=== PATIENT | male | born 1955 | race Caucasian/White ===

== ENCOUNTER 2020-12-19 17:36 | Emergency (ER) | payer MEDICARE, SELFPAY ==
--- NOTE | 2020-12-19 17:37 | W.ED.GENAD ---
Discharge Plan Disposition Patient Disposition: HOME Condition: Stable Discharge Details Clinical Impression: Otitis media Primary Care Provider: Vane,Local ED Provider: Cherry Uribe Home Meds and New Rx's Prescriptions: New amoxicillin 500 mg tablet 500 mg PO TID 10 Days Qty: 30 RF: 0 prednisone 20 mg tablet See Rx Instructions .ROUTE .COMPLEX Qty: 9 RF: 0 Continued losartan 50 mg Tablet 50 mg PO DAILY RF: 0 amlodipine 5 mg Tablet 5 mg PO DAILY RF: 0 aspirin 81 mg Tablet,Delayed Release (Dr/Ec) 81 mg PO DAILY RF: 0 meloxicam 7.5 mg Tablet 7.5 mg PO DAILY RF: 0 rosuvastatin 20 mg tablet 20 mg PO DAILY RF: 0 Discharge Instructions Instructions: Ear Infection (ED) Additional Instructions: Take the antibiotics and steroids as directed until finished. Take Tylenol as needed and directed for pain. Follow-up with your ear nose and throat doctor for reevaluation in the next 1 to 2 weeks. Return immediately to the emergency department if you develop any worsening or new concerning symptoms. Discharge Data Discharge Date/Time-TO BE ENTERED AT DEPARTURE: 12/19/20 18:05 Discharge Physician: Cherry Uribe Medical Decision Making 65-year-old male presents with left ear pain, fullness feeling and decreased hearing for the past month, worse today now associated with left-sided headache. Patient appears nontoxic. Left TM appears dull with yellowish fluid behind. There is also scattered white tissue noted around drum which may be consistent with scarring from previous infection or associated with current effusion. There is no erythema. Left mastoid is minimally tender but without edema or erythema. No pain with pulling on auricle or palpation of tragus. Presentation does not appear consistent with mastoiditis or otitis externa. Suspect most likely otitis media. Will treat with amoxicillin and steroids. Patient advised to follow-up with his ENT for reevaluation. Usual and customary return precautions given prior to discharge. HPI General Mode of arrival: ambulatory. Date/Time Provider Initiated Documentation: 12/19/20 17:37. Limitations to Documentation: no limitations. Information obtained by: patient. HPI Narrative: Patient is a 65-year-old male who presents with left ear pain for 1 month, worse today now with left-sided headache. Patient states he is a frequent swimmer and thought he possibly had swimmer's ear and has been using Ciprodex for the past few days without relief. He denies fever, sore throat, dizziness, ear drainage, tinnitus. Related Data Home Medications Medication Instructions Recorded Confirmed amlodipine 5 mg PO DAILY 12/19/20 12/19/20 amoxicillin 500 mg PO TID 10 Days #30 tab 12/19/20 aspirin 81 mg PO DAILY 12/19/20 12/19/20 losartan 50 mg PO DAILY 12/19/20 12/19/20 meloxicam 7.5 mg PO DAILY 12/19/20 12/19/20 prednisone See Rx Instructions .ROUTE 12/19/20 .COMPLEX #9 tab rosuvastatin 20 mg PO DAILY 12/19/20 12/19/20 Previous Rx's Medication Instructions Recorded amoxicillin 500 mg PO TID 10 Days #30 tab 12/19/20 prednisone See Rx Instructions .ROUTE 12/19/20 .COMPLEX #9 tab Allergies Allergy/AdvReac Type Severity Reaction Status Date / Time No Known Allergies Allergy Verified 12/19/20 17:47 Review of Systems All systems reviewed & are unremarkable except as noted in HPI and below Constitutional Constitutional: Reports as per HPI, Denies chills and Denies fever(s) Eyes Eyes: Denies blurry vision ENT Ears, Nose, Mouth, and Throat: Denies dizziness, Reports otalgia, Denies sore throat and Denies throat swelling Cardiovascular Cardiovascular: Denies chest pain and Denies dyspnea Respiratory Respiratory: Denies cough and Denies dyspnea Gastrointestinal Gastrointestinal: Denies abdominal pain, Denies diarrhea and Denies vomiting Genitourinary Genitourinary: Denies hematuria and Denies dysuria Musculoskeletal Musculoskeletal: Denies back pain and Denies numbness Integumentary/Breasts Skin/Breast: Denies lesions and Denies rash Neurologic Neurologic: Denies dizziness, Denies localized weakness and Denies numbness Allergic/Immunologic Allergic/Immunologic: Denies throat swelling [facility] Medical History (Updated 12/19/20 @ 19:21 by Cherry Uribe DO) High cholesterol HTN (hypertension) Surgical History (Updated 12/19/20 @ 19:21 by Cherry Uribe DO) H/O thumb surgery History of fusion of cervical spine Social History Smoking risk assessment performed?: No Do you feel safe at home: Yes Do you feel safe in your relationship?: Yes Exam Const General: cooperative, healthy appearing and no acute distress HENMT Head: normal to inspection Ears: hearing grossly normal bilaterally, external ears normal, EAC's normal (No tenderness to palpation of tragus or pulling of auricle. ), mastoids normal on the left tender (minimal); not edematous and no erythema, no periauricular adenopathy, TM abnormal dull on the left, with fluid behind the TM on the left and scarred on the left (Scattered patches of white tissue) and other (Small superficial abrasion superior aspect of ear canal.) General nose exam: external nose normal Mouth: oral mucosae normal Throat: posterior oropharynx normal Eyes General: appearance normal, both eyes and all related structures Neck Neck: normal visual inspection, no lymphadenopathy, no meningeal signs, trachea midline, supple, no anterior neck swelling and No submandibular swelling Resp Effort & Inspection: normal respiratory effort and able to speak in complete sentences Cardio Rate: regular rate Skin General skin exam: no rashes or lesions noted Neuro General: patient alert, patient awake and patient oriented x3 Motor: muscle tone normal throughout Extrem General: normal to inspection and full ROM Psych Appearance: grossly normal Affect: normal affect
[2020-12-19 17:43] VITALS: BP 188/90; PULSE 64; TEMP 36.4; O2SAT 99
[2020-12-19] MEDS: Amoxicillin 500 MG CAP PO ×2 (17:58)
[2020-12-19] MEDS: predniSONE 20 MG TAB 60 MG PO (17:58)
== END 2020-12-19 18:05 | disposition home or self-care (01) ==
PROVIDERS: Emergency Provider Physician Assistant
DX: H66.92 Otitis media, unspecified, left ear (principal); I10 Essential (primary) hypertension
CPT/HCPCS: 99283; J7512